=== PATIENT | male | born 1985 ===

== ENCOUNTER 2023-04-16 16:06 | Outpatient (CLI) | payer BC, SELFPAY ==
--- NOTE | ~2023-04-16 | CT_ITS ---
EXAMINATION: CT abdomen pelvis wo con DATE: 04/16/2023 16:20 INDICATION: Left flank pain. Left ureteral stone. TECHNIQUE: Computed tomography (CT) of the abdomen and pelvis was performed without intravenous contr ast. Automated exposure control and iterative reconstruction technique were employed. The dose-length product was 865.46 mGy-cm. COMPARISON: None FINDINGS: Lung bases are clear. Heart size is normal. No pericardial or pleural effusion. Liver, gallbladder, s pleen, pancreas, right kidney and bilateral adrenal glands are normal. 5 cm left renal cyst. No uroli thiasis or hydronephrosis on either the left or right. Bowels including the appendix are normal. Deco mpressed bladder is normal. Small bilateral fat-containing inguinal hernias. Minimal to mild lumbar a nd lower thoracic spondylosis. IMPRESSION: 1. 5 cm left renal cyst. Bilateral kidneys and ureters are otherwise normal with no urolithiasis or h ydronephrosis. Reviewed, dictated and finalized at location A. [facility]NA[facility]ER IMPRESSION: 1. 5 cm left renal cyst. Bilateral kidneys and ureters are otherwise normal wit h no urolithiasis or hydronephrosis.
== END 2023-04-16 16:07 | disposition home or self-care (01) ==
LOC: ANHIMG 16:08
PROVIDERS: Visit Provider Urology
DX: N28.1 Cyst of kidney, acquired (principal); N20.1 Calculus of ureter
CPT/HCPCS: 74176